=== PATIENT | male | born 1940 | race Caucasian/White ===

== ENCOUNTER 2017-02-22 16:12 | Inpatient (IN) | payer MEDICARE, BC ==
[2017-02-22] VITALS (11 sets, daily range): BP systolic 70–113; BP diastolic 41–74
[~2017-02-22] VITALS: Ht 175.3 cm; Wt 88.9 kg
[2017-02-22] MEDS ORDERED: NOREPINEPHRINE 8 MG/250ML KIT 250 ML IV ONE (16:59)
[2017-02-22] MEDS ORDERED: MORPHINE SULF INJ 2 MG/ML SYRINGE 1ML IV ONE ×2 (17:00)
[2017-02-22] MEDS ORDERED: ONDANSETRON HCL 4 MG/2 ML VIAL IV ONE (17:00)
[2017-02-22] MEDS ORDERED: NOREPINEPHRINE 8 MG/250ML KIT 250 ML IV SCH (17:03)
[2017-02-22] MEDS ORDERED: SODIUM CHLORIDE 0.9% 1,000 ML IVB ONE (17:08)
[2017-02-22 17:19] LABS: Basophils # (auto) 0.1 uL; Basophils % (auto) 0.5 % (0.0-2.0); Eosinophils # (auto) 0.1 uL; Eosinophils % (auto) 0.7 % (0.0-7.0); Hematocrit 48.5 % (41.0-53.0); Hemoglobin 16.4 g/dL (13.5-17.5); Lymphocytes # (auto) 1.6 uL; Mean Corpuscular Hemoglobin 29.8 pg (28.0-32.0); Mean Corpuscular Hgb Conc. 33.9 g/dL (32.0-36.0); Mean Platelet Volume 9.4 fL (6.9-10.8); Monocytes # (auto) 0.8 uL; Neutrophils % (auto) 75.8 % (37.0-80.0); Nucleated Red Blood Cells % 0.2 %; Platelet Count (auto) 261 10^3/uL (140-450); Red Cell Distribution Width 13.8 % (11.8-14.3); White Blood Cell 10.6 10^3/uL (4.4-10.8)
[2017-02-22 17:56] LABS: INR 1.05 (0.9-1.15); Partial Thromboplastin Time 29.5 sec (22.64-33.71); Prothrombin Time 11.5 sec (9.37-12.3)
[2017-02-22 17:59] LABS: Albumin 3.7 g/dL (3.4-5.0); BUN/Creatinine Ratio 18.3; Calcium 9.2 mg/dL (8.5-10.1); Potassium 4.8 mmol/L (3.5-5.1); Total Protein 7.7 g/dL (6.4-8.2)
[2017-02-22] MEDS ORDERED: LIDOCAINE 2%HCL (LOCAL ANESTH.) INJ 20ML MDV ONE (18:03)
[2017-02-22] MEDS ORDERED: IODIXANOL 320MG/ML 100ML BTL IV ONE (18:04)
[2017-02-22 18:10] LABS: B-Type Natriuretic Peptide 93.9 pg/mL (0-100)
[2017-02-22] MEDS ORDERED: HEPARIN 1,000 UNITS/ml 1ML VIAL ONE (18:12)
[2017-02-22 18:13] LABS: Temperature: 22.7 C (20.0-25.0)
[2017-02-22] MEDS ORDERED: SODIUM CHL 0.9% 50 ML ONE (18:22)
[2017-02-22] MEDS ORDERED: ANGIOMAX 250 MG VIAL IV ONE (18:22)
[2017-02-22] MEDS ORDERED: fentaNYL CITRATE 100 MCG/2 ML VL ONE (18:22)
[2017-02-22] MEDS ORDERED: MIDAZOLAM HCL 1MG/1ML-2 ML VIAL ONE (18:23)
[2017-02-22] MEDS ORDERED: EPTIFIBATIDE INJ (2MG/ML) 10ML VIAL IV ONE ×3 (18:30→20:45)
[2017-02-22] MEDS ORDERED: ONDANSETRON HCL 4 MG/2 ML VIAL ONE ×2 (18:44→19:42)
[2017-02-22] MEDS ORDERED: MORPHINE SULF INJ 2 MG/ML SYRINGE 1ML ONE ×2 (18:48→20:30)
[2017-02-22] MEDS ORDERED: FUROSEMIDE 40 MG/4 ML VIAL ONE (18:48)
[2017-02-22] MEDS ORDERED: TICAGRELOR 90 MG TAB ONE (18:49)
[2017-02-22] MEDS ORDERED: MORPHINE SULF INJ 2 MG/ML SYRINGE 1ML IV PRN (19:15)
[2017-02-22] MEDS ORDERED: NITROGLYCERIN 0.4 MG SL TAB SL PRN (19:15)
[2017-02-22 19:30] LABS: Allen Test Yes; Base Excess -8.8 mmol/L (-2.0-2.0); Blood 02Sat 90.2 % (96-100); Blood COHb 0.3 % (0.5-1.5); Blood MetHb 0.5 % (0.0-1.5); HCO3 17.5 mmol/L (22-26.0); HHb 9.7 % (0.0-5.0); MODE MASK - BIPAP; O2Hb 89.5 % (94.0-97.0); PCO2 39.6 mmHg (35.0-45.0); PCO2(T) 39.6 mmHg (35.0-45.0); PO2 68.8 mmHg (80.0-100.0); PO2(T) 68.8 mmHg (80.0-100.0); Pressure Support 12; Sample Type Arterial; pH 7.264 (7.350-7.450)
[2017-02-22] MEDS ORDERED: TICAGRELOR 90 MG TAB PO ONE (19:30)
[2017-02-22] MEDS ORDERED: HYDROmorphone HCL 2 MG/ML VL IV PRN (20:00)
[2017-02-22] MEDS ORDERED: ACETAMINOPHEN 500 MG TAB PO PRN (20:00)
[2017-02-22] MEDS ORDERED: PHENYLEPHRINE INJ 20 MG in SODIUM CHL 0.9% 250 ML IV SCH (20:00)
[2017-02-22] MEDS ORDERED: PROCHLORPERAZINE EDISYLATE 5 MG/ML 2ML VIAL IV PRN ×2 (20:00→20:15)
[2017-02-22] MEDS ORDERED: ONDANSETRON HCL 4 MG/2 ML VIAL IV PRN (20:00)
[2017-02-22] MEDS ORDERED: HEPARIN SODIUM (PORCINE) 5000 UNITS/ML 1ML VIAL ONE (20:30)
[2017-02-22] MEDS ORDERED: HEPARIN SODIUM (PORCINE) 5000 UNITS/ML 1ML VIAL IV ONE (20:45)
[2017-02-22] MEDS ORDERED: HEPARIN DRIP/D5W 100UNITS/ML 250 ML IV ONE (20:52)
[2017-02-22] MEDS ORDERED: EPTIFIBATIDE DRIP(0.75MG/ML) 100 ML IV ONE ×2 (20:57→21:15)
[2017-02-22] MEDS ORDERED: HEPARIN DRIP/D5W 100UNITS/ML 250 ML IV SCH (21:30)
[2017-02-22] MEDS ORDERED: ATORVASTATIN 20 MG TAB PO SCH (22:00)
[2017-02-22] MEDS ORDERED: BUMETANIDE (0.25MG/ML) 4 ML VIAL ONE (23:33)
[2017-02-22 23:47] LABS: INR 1.47 (0.9-1.15); Prothrombin Time 16.1 sec (9.37-12.3)
[2017-02-22 23:50] LABS: Partial Thromboplastin Time 98.6 sec (22.64-33.71)
[2017-02-22] MEDS ORDERED: ETOMIDATE (2MG/ML) 20ML VIAL IV ONE (23:52)
[2017-02-22] MEDS ORDERED: ATROPINE SULF 0.5 MG/5ML SYR ONE (23:52)
[2017-02-22] MEDS ORDERED: SUCCINYLCHOLINE CHLORIDE 20 MG/ML 10ML VIAL IV ONE (23:52)
[2017-02-23 01:52] LABS: Blood 02Sat 72.2 % (96-100); MODE MASK - BIPAP; Sample Type Venous; Venous Blood COHb 0.3 % (0.5-1.5); Venous Blood Gas pH 7.012 (7.34-7.37); Venous Blood MetHb 0.2 % (0.0-1.5); Venous Blood O2Hb 71.8 % (94.0-97.0); Venous Blood PCO2 (T) 40.9 mmHg (44.0-46.0); Venous Blood PO2 53.8 mmHg (38.0-42.0); Venous Blood PO2(T) 53.8 mmHg (38.0-42.0); Venous Deoxyhemoglobin 27.7 % (0.0-5.0)
[2017-02-23] MEDS ORDERED: FUROSEMIDE 40 MG/4 ML VIAL IV ONE (02:00)
[2017-02-23] MEDS ORDERED: TICAGRELOR 90 MG TAB PO SCH (10:00)
[2017-02-23] MEDS ORDERED: ASPirin 81 mg TAB PO SCH (10:00)
== END 2017-02-23 04:32 | disposition expired | DRG 250 ==
LOC: EDBD 16:12 → ER 16:16 → CATH 17:59 → ICU WEST 18:00
PROVIDERS: ADMIT Internal Medicine; ATTEND Internal Medicine
PROC: 02703ZZ Dilation of Coronary Artery, One Artery, Percutaneous Approach (ICD-10-PCS; principal; 2017-02-22)
PROC: 5A12012 Performance of Cardiac Output, Single, Manual (ICD-10-PCS; 2017-02-22)
PROC: 4A023N7 Measurement of Cardiac Sampling and Pressure, Left Heart, Percutaneous Approach (ICD-10-PCS; 2017-02-22)
PROC: B3101ZZ Fluoroscopy of Thoracic Aorta using Low Osmolar Contrast (ICD-10-PCS; 2017-02-22)
PROC: B2151ZZ Fluoroscopy of Left Heart using Low Osmolar Contrast (ICD-10-PCS; 2017-02-22)
PROC: B2111ZZ Fluoroscopy of Multiple Coronary Arteries using Low Osmolar Contrast (ICD-10-PCS; 2017-02-22)
PROC: B41F1ZZ Fluoroscopy of Right Lower Extremity Arteries using Low Osmolar Contrast (ICD-10-PCS; 2017-02-22)
PROC: 0BH17EZ Insertion of Endotracheal Airway into Trachea, Via Natural or Artificial Opening (ICD-10-PCS; 2017-02-22)
PROC: 5A09357 Assistance with Respiratory Ventilation, Less than 24 Consecutive Hours, Continuous Positive Airway Pressure (ICD-10-PCS; 2017-02-22)
DX: T82.867A Thrombosis due to cardiac prosthetic devices, implants and grafts, initial encounter (principal); I21.4 Non-ST elevation (NSTEMI) myocardial infarction; I46.9 Cardiac arrest, cause unspecified; I25.110 Atherosclerotic heart disease of native coronary artery with unstable angina pectoris; R57.8 Other shock; E78.00 Pure hypercholesterolemia, unspecified; E11.9 Type 2 diabetes mellitus without complications; E78.5 Hyperlipidemia, unspecified; I10 Essential (primary) hypertension; Y83.8 Other surgical procedures as the cause of abnormal reaction of the patient, or of later complication, without mention of misadventure at the time of the procedure; I44.7 Left bundle-branch block, unspecified; K21.9 Gastro-esophageal reflux disease without esophagitis; Z86.79 Personal history of other diseases of the circulatory system; Z95.5 Presence of coronary angioplasty implant and graft; Z82.49 Family history of ischemic heart disease and other diseases of the circulatory system; Y92.89 Other specified places as the place of occurrence of the external cause
CPT/HCPCS: 51702; 92920; 93458; 93567; 96374; 96375; 99291; G0278; 36415; 36600; 71010; 74176; 80053; 82805; 82962; 83735; 83880; 84443; 84484; 85025; 85379; 85610; 85730; 86850; 86900; 86901; 87040; 87081; 93005; 93306; 94660; 99152; 99153; J0330; J0461; J1642; J2250; J2405; Q9967